=== PATIENT | female | born 2005 | race Caucasian/White ===

== ENCOUNTER 2023-12-17 11:31 | Outpatient (REF) | payer BC, SELFPAY ==
--- NOTE | ~2023-12-17 | US_ITS ---
EXAMINATION: US PELVIS CLINICAL INFORMATION: Pelvic pain LMP: No menses since placement of IUD COMPARISON: None available. TECHNIQUE: Ultrasound of the pelvis is performed using both transabdominal and transvaginal transducers along with Doppler. Transvaginal imaging is performed due to inadequate visualization transabdominally. FINDINGS: Uterus: The uterus is anteverted and measures 7.4 x 3.0 x 4.2 cm. No focal fibroid. The endometrial thickness is 0.4 cm. The IUD appears in proper position. Adnexa: Both ovaries are visualized. There is normal color flow to the adnexa. There is no ovarian torsion. There is no pelvic ascites or fluid collection. Right ovary measures 2.1 x 2.3 x 2.2 cm. Volume 7.6 mL. Left ovary measures 1.9 x 3.3 x 2.2 cm. Volume 6.9 mL. US/US pelvic and transvaginal IMPRESSION: 1. Normal uterus and ovaries. 2. The IUD appears in proper position.
== END 2023-12-17 11:32 | disposition home or self-care (01) ==
LOC: HO.UMASIMG 11:31
PROVIDERS: Visit Provider Family Medicine
DX: R10.2 Pelvic and perineal pain (principal); R10.9 Unspecified abdominal pain
CPT/HCPCS: 76830; 76856